=== PATIENT | female | born 1995 ===

== ENCOUNTER 2018-07-11 14:18 | Inpatient (IN) ==
[2018-07-11 11:51] LABS: Amphetamine Screen,Urine Negative ng/mL (Cutoff=1000); Barbiturate Screen,Urine Negative ng/mL (Cutoff=200); Benzodiazepines Screen,Urine Negative ng/mL (Cutoff=200); Cannabinoid Screen,Urine Negative ng/mL (Cutoff = 50); Cocaine Screen,Urine Negative ng/mL (Cutoff= 300); Creatinine,Urine 52 mg/dL; Opiate Screen,Urine Negative ng/mL (Cutoff=300); Phencyclidine Screen,Urine Negative ng/mL (Cutoff=25)
[2018-07-11 11:59] LABS: Basophils % 0.3 %; Eosinophils # 0.1 K/mcL (0.0-0.6); Hematocrit 38.4 % (35.3-44.9); Hemoglobin 13.6 g/dL (11.5-15.4); Immature Granulocytes % 0.3 % (0-4); Lymphocytes # 1.8 K/mcL (0.6-4.6); Mean Corpuscular HGB Conc 35.4 g/dL (31.6-35.5); Mean Corpuscular Hemoglobin 29.9 pg (28.0-33.3); Mean Corpuscular Volume 84.4 fL (83.0-100.0); Mean Platelet Volume 10.6 fL (9.4-12.4); Monocytes # 0.5 K/mcL (0.0-1.3); Neutrophils # 3.6 K/mcL (1.6-8.9); Nucleated Red Blood Cells 0.3 /100 WBC (0); Platelet Count 293 K/mcL (140-400); Red Blood Count 4.55 M/mcL (3.82-4.97); Red Cell Distribution Width 13.7 % (11.5-14.5); Segmented Neutrophils % 60.4 %
[2018-07-11 12:06] LABS: Alanine Aminotransferase 25 Units/L (7-52); Aspartate Amino Transferase 22 Units/L (13-39); BUN/Creatinine Ratio 14 (6-26); Blood Urea Nitrogen 11 mg/dL (6-20); Lactate Dehydrogenase 182 Units/L (140-271); Uric Acid 7.3 mg/dL (2.3-7.6); eGFR For Non-African Americans > 60 (> 60)
--- NOTE | 2018-07-11 13:08 | OB/GYN History & Physical ---
Date of Encounter: 07/11/18 Time of Encounter: 13:04 Assessment and Plan (1) First in adolescent 16 years of age or older in third trimester Current visit: Yes Status: Acute (2) 36 weeks gestation of Current visit: Yes Status: Acute (3) Mild preeclampsia Current visit: Yes Status: Acute Case was discussed with maternal medicine at [facility] who recommended 24-hour urine serial blood pressures and if stable discharge home but if she spikes high blood pressures again in the severe range to bring back to labor and delivery placed on magnesium sulfate and start an induction. Qualifiers: Trimester: third trimester Qualified Code(s): O14.03 - Mild to moderate pre-eclampsia, third trimester History of Present Illness HPI: Ms. Iglesias is a 22 year old female 1 para 0 at 36-0/7 weeks who was sent from the office due to elevated blood pressures. Patient had blood pressures of 168/120 with a repeat of 160/120 patient was recently seen at [facility] admitted because of mild preeclampsia lab work at that time was all normal blood pressure was stable she was discharged home. Patient is scheduled for induction at 37 weeks. 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 She is not cured. Patient states she has had no complications with sickle cell since that transplant patient is denying any headaches, blurred vision, scotomata, is asymptomatic and always. Her blood pressure initially on labor and delivery was 142/92 however her repeats were stable 120s over 70s with 117/70 is the lowest. Patient states that she is scheduled for an echocardiogram later today due to some history of an enlarged heart but they did one at [facility]. We did call maternal- medicine discuss the case with them because all of her labs are normal blood pressure stable and she is asymptomatic. Recommended keeping patient for 24- hour urine if she was to spike severe blood pressures again go ahead and mag and start the induction. Blood pressure stable 25 urine is normal she should be discharged home repeat NST and labs later in the week and induce at 37 weeks. Patient's echocardiogram at [facility] was normal she had mild pericardial effusions but ejection fraction was 55-60% there was no concerns. He also GBS while she was there that was negative. The only abnormal lab she had today with her to continue ratio was 0.6 but LFTs platelets and hemoglobin overall stable. She is not complaining of any contractions still having good movement. We will start the 25 urine watch her closely over on the floor. Past Med Surg Social Fam HX - Past Medical History Source: patient, old records reviewed Additional medical history: sickle cell anemia. bone marrow at age 11. pt was at [facility] for high bp 2 weeks ago Psychiatric history: no psych history - Past Surgical History Surgical History: appendectomy, cholecystectomy, splenectomy Additional surgical history: left side hip and pelvic bone surgery - Social History Smoking Status: Never smoker Alcohol use: none Drug use: none Occupational status: unemployed Current living situation: Home - Independent Activity Level: Independent ambulation Recent Out of Country Travel Within the Last 8 Weeks: No Exposure or Possible Exposure to Illness During Travel: No - Family History Mother Living Status: Still Living Hx Family Cardiac Disorders: No Hx Family Respiratory Disorders: No Hx Family Cancer: No Hx Family GI Disorders: No Hx Family Genitourinary Disorders: No Hx Family Endocrine Disorder: No Hx Family Musculoskeletal Disorders: No Hx Family Neuromuscular Disorders: No Hx Family Neurologic Disorders: No Hx Family HEENT Disorders: No Hx Family Autoimmune Disorders: No Hx Family Reproductive Disorders: No Hx Family Psychosocial Disorders: No Hx Family Medical Disorders: No - Additional Family History Additional family history: Family history noncontributory at this time Obstetrical History - Pregnancies : 1 Para: 0 Medications and Allergies Pnv95/Ferrous Fumarate/FA [ Vitamin Tablet] 1 tab PO DAILY 07/11/18 [History] Allergy/AdvReac Type Severity Reaction Status Date / Time No Known Allergies Allergy Verified 07/11/18 11:03 Review of System OB All systems PM: reviewed and no additional remarkable complaints except as stated Exam - Constitutional Constitutional: well developed, well nourished, no acute distress, average body habitus - HEENT HEENT: EOMI, PERRL, Mucus Membranes Moist - Neck Neck exam: full ROM - Lungs Respiratory exam: CTAB - Cardiovascular Cardiovascular exam: RRR - Abdomen Abdomen: Present: bowel sounds normal, gravid (Heart tones 140s reactive occasional contractions) Results Result Diagrams: 07/11/18 11:15 07/11/18 11:15 Abnormal lab results Nucleated RBCs/100 WBC 0.3 /100 WBC (0) H 07/11/18 11:15 Protein/Creatinin Ratio 0.60 mg/mg (0.00-0.20) H 07/11/18 11:15 Urine Total Protein 31 mg/dL (1-14) H 07/11/18 11:15 All other labs normal. - VTE Reasons for not Prescribing Prophylaxis: Treatment not Indicated - Low risk for VTE
[2018-07-11] MEDS ORDERED: Acetaminophen 325 MG TABLET PO PRN (14:31)
[2018-07-11] MEDS ORDERED: Calcium Gluconate 1,000 MG/10 ML VIAL IVPB PRN (23:06)
[2018-07-11] MEDS ORDERED: miSOPROStol 25 MCG TABLET PO ONE (23:30)
[2018-07-11] MEDS ORDERED: Naloxone 0.4 MG/ML INJ IVP PRN (23:32)
[2018-07-11] MEDS ORDERED: *HR* Nalbuphine 10 MG/ML AMPUL IVP PRN (23:32)
[2018-07-11] MEDS ORDERED: Metoclopramide 10 MG/2 ML VIAL IVP PRN (23:32)
[2018-07-11] MEDS ORDERED: Famotidine 20 MG/2 ML VIAL IVP PRN (23:32)
[2018-07-12] MEDS: Ondansetron 4 MG/2 ML VIAL IVP PRN ×2 (00:36→17:36)
[2018-07-12] MEDS: Magnesium Sulfate 20 gm/500mL 20 GM/500 ML IV.SOLN IVC SCH ×3 (00:53→22:09)
--- NOTE | 2018-07-12 03:12 | OB Labor Progress Note ---
Date of Encounter: 07/12/18 Time of Encounter: 00:20 Labor Progress Note - Subjective Subjective: Patient resting in bed without complaint at this time. She is very nervous. - Vital Signs Vital Signs: Elevated BP, afebrile - Cervix Cervix: FT/thick/high - Heart Tones Heart Tones: FHR 130 bpm, moderate variability, +15x15 accels, no decels. - [place]: Rare contractions - Interventions Interventions: SVE PO Cytotec ordered - Plan Physician notified: Yes Physician notified details: Dr. Brice aware of patient's BP's and he ordered the induction. Orders were given for 4 gram Mag Sulfate bolus, then 2 gm/hr. Plan: Start Mag Sulfate per protocol with BP monitoring per protocol. Begin induction with 50 mcg po Cytotec Strict I&O
[2018-07-12 06:24] LABS: Basophils % 0.1 %; Eosinophils % 0.4 %; Hematocrit 41.2 % (35.3-44.9); Hemoglobin 14.5 g/dL (11.5-15.4); Immature Granulocytes % 0.6 % (0-4); Lymphocytes # 2.2 K/mcL (0.6-4.6); Lymphocytes % 24.6 %; Mean Corpuscular HGB Conc 35.2 g/dL (31.6-35.5); Mean Corpuscular Hemoglobin 29.7 pg (28.0-33.3); Mean Corpuscular Volume 84.3 fL (83.0-100.0); Mean Platelet Volume 10.2 fL (9.4-12.4); Monocytes # 0.9 K/mcL (0.0-1.3); Monocytes % 9.5 %; Neutrophils # 5.8 K/mcL (1.6-8.9); Nucleated Red Blood Cells 0.3 /100 WBC (0); Platelet Count 284 K/mcL (140-400); Red Blood Count 4.89 M/mcL (3.82-4.97); Red Cell Distribution Width 13.4 % (11.5-14.5); Segmented Neutrophils % 64.8 %
[2018-07-12 06:48] LABS: Uric Acid 7.8 mg/dL (2.3-7.6)
[2018-07-12] MEDS ORDERED: Epidural Premix (fent/bupiv) 110 ML EP SCH (08:00)
[2018-07-12] MEDS ORDERED: Prenatal Vit/FA 1 EACH TABLET PO SCH (09:00)
--- NOTE | 2018-07-12 09:07 | OB Labor Progress Note ---
Date of Encounter: 07/12/18 Time of Encounter: 09:05 Labor Progress Note - Subjective Subjective: Pt resting, no acute c/o. Minimal cramps - Vital Signs Vital Signs: BP142/94 - Cervix Cervix: Ft/70/-1, very difficult to examine b/c of pain - [place]: Irritability - Interventions Interventions: Will start pit - Plan Plan: Will begin Pit
[2018-07-12] MEDS ORDERED: Oxytocin 20 units/ LR 1000 mL 20 UNIT/1,000 ML BAG IVC SCH (09:15)
[2018-07-12] MEDS ORDERED: Oxytocin 20 units/ LR 1000 mL 20 UNIT/1,000 ML BAG IVC ONE (09:21)
--- NOTE | 2018-07-12 09:51 | Anesthesia Evaluation PreOp ---
Addendum entered and electronically signed by Keny Wills CRNA 07/14/18 00:20: Delivery Date: 07/14/18 Delivery Time: 23:25 Original Note: Date of Encounter: 07/12/18 Time of Encounter: 09:49 - Past History Planned Operation: BISMARK/Primary C/S Cardiac History: Other (Echo done at [facility] during this . Enlarged heart with minor fluid, EF 55-60%. Pt denies chest pains and arrhythmias.) Pulmonary History: Denies Any Significant HX LANDSCAPE ARCHITECT AND PLANNER History: Denies Any Significant HX Other Medical History: Other (Sickle Cell Dx) Anesthesia History: No Prior Anesthetic Complications, Past Anesthesia (Multiple surgeries, no complications.) Alcohol Use: none Drug use: none Medications and Allergies Pnv95/Ferrous Fumarate/FA [ Vitamin Tablet] 1 tab PO DAILY 07/11/18 [History] Allergy/AdvReac Type Severity Reaction Status Date / Time No Known Allergies Allergy Verified 07/11/18 11:03 - Meds/Allergy Pre-op Review Medications Reviewed: Yes Allergies Reviewed: Yes Beta Blockers on Current Med List: No Anesthesia Results - Labs 07/12/18 06:14 07/11/18 11:15 Anesthesia Exam O2 Sat Height 1.63 m Height 1.63 m Weight 77.065 kg Weight 75 kg Weight 74.7 kg O2 Sat by Pulse Oximetry 99 O2 Sat by Pulse Oximetry 99 O2 Sat by Pulse Oximetry 97 Vital Signs Temp Pulse Resp BP Pulse Ox 98.6 F 74 12 144/100 97 07/11/18 14:05 07/11/18 14:05 07/11/18 14:05 07/11/18 14:05 07/11/18 14:05 NPO (# of Hours): 4 Pain Scale: 1 Pain Scale Used: Numeric (1 - 10) - HEENT Pupil (Motor): Pupils equal Mallampati: II Teeth: Normal Oral Opening: Greater than 3 - LANDSCAPE ARCHITECT AND PLANNER LOC: Oriented LANDSCAPE ARCHITECT AND PLANNER Motor: Normal RUE, Normal LUE, Normal RLE, Normal LLE, Normal Face LANDSCAPE ARCHITECT AND PLANNER Sensory: Normal: RUE, LUE, RLE, LLE, Face - Cardiac Rhythm: Regular Murmur: None JVD: No Carotid Bruit: No - Pulmonary Breath Sounds: bilateral Clear Respiratory Effort: Symmetrical Anesthesia Assess/Plan ASA Score: 2 Level of consciousness: Cooperative, Oriented Anesthetic Plan: General, Epidural Autologous Blood: Yes Monitoring Plan: Standard Monitors
[2018-07-12] MEDS ORDERED: Acetaminophen 325 MG TABLET PO PRN (12:42)
[2018-07-12] MEDS ORDERED: *HR* Meperidine 25 MG/ML SYRINGE IVP PRN (20:42)
--- NOTE | 2018-07-12 20:45 | OB Labor Progress Note ---
Date of Encounter: 07/12/18 Time of Encounter: 20:44 Labor Progress Note - Subjective Subjective: Pt c/o headache, minimal cramps. - Vital Signs Vital Signs: bp 138/88 - Cervix Cervix: 1 60 -2 - Heart Tones Heart Tones: RNST - [place]: Irregular uc's with pit at 20 mu/min - Interventions Interventions: Grimes cath placed into cervix without difficulty and ballon filled with 40 ccsterile water.
[2018-07-13] MEDS: miSOPROStol 25 MCG TABLET PO PRN ×2 (00:42→05:02)
[2018-07-13] MEDS: Ondansetron 4 MG/2 ML VIAL IVP PRN ×3 (00:47→16:27)
[2018-07-13] MEDS: Ringers Solution, Lactated 1,000 ML IVC SCH ×2 (07:37→16:28)
[2018-07-13] MEDS: Magnesium Sulfate 20 gm/500mL 20 GM/500 ML IV.SOLN IVC SCH ×2 (07:38→17:38)
[2018-07-13] MEDS ORDERED: *HR* FentaNYL (PF) 100 MCG/2 ML VIAL EP ONE (08:57)
[2018-07-13] MEDS ORDERED: *HR* Ropivacaine/PF 0.2% 20 ML VIAL EP ONE (08:57)
[2018-07-13] MEDS ORDERED: *HR* FentaNYL (PF) 100 MCG/2 ML VIAL ONE (08:59)
[2018-07-13] MEDS ORDERED: Lidocaine -MPF 2% 5 ML VIAL ONE (08:59)
[2018-07-13] MEDS ORDERED: *HR* Ropivacaine/PF 0.2% 20 ML VIAL ONE (09:00)
[2018-07-13] MEDS ORDERED: EPHEDrine 50 MG/ML VIAL ONE ×2 (09:29→10:42)
--- NOTE | 2018-07-13 09:36 | Anesthesia Procedures ---
Date of Encounter: 07/13/18 Time of Encounter: 09:34 Procedures: Anesthesia - Epidural/Spinal Patient ID/Chart reviewed: Yes Patient examined: Yes OB Eval: Gestational age: 36 OB Eval: : 1 OB Eval: Hx Para: 0 OB Eval: Dilated at (cm): 2 OB Eval: Contractions: Non-stressed pattern Consent Obtained: Yes Supplemental Oxygen: None/Room Air Site Prep: Aseptic Technique, Sterile prep and drape Patient position: upright Local Anesthetic: Lidocaine 1% Amount of Local Anesthetic used: 3 Touhy Needle Gauge: 18 Touhy Needle Depth (cm): 8 Catheter Depth at Skin (cm): 20 Test Dose (1.5% Lido + Epi): Volume given (mls): 3 Test Dose Result: Negative Loading Dose: Fentanyl (mcg): 100 Loading Dose: Other: rop 0.2% 10cc Loading Dose Administered: Thru Catheter Infusion Med: 0.125% Bupivacaine w/ 2 mcg/ml Fentanyl Infusion Rate (mls/hr): [address]: Tegaderm Interspace Used: L2-L3 Loss of Resistance (SOL): Yes Blood: No CSF: No Paresthesia: No Procedure: aseptic, jcarlos well, VSS, effective Vitals + FHT's: see notes
[2018-07-13] MEDS ORDERED: miSOPROStol 100 MCG TABLET PO ONE (11:09)
--- NOTE | 2018-07-13 13:22 | OB Labor Progress Note ---
Date of Encounter: 07/13/18 Time of Encounter: 13:20 Labor Progress Note - Subjective Subjective: Pt comfortable with epidural. - Cervix Cervix: 6/80/-1 - Heart Tones Heart Tones: Baseline 120 Moderate variability Accelerations present 15x15 No decelerations FHR Category I - [place]: UTD - Interventions Interventions: SVE AROM-large amount of clear fluid IUPC - Plan Physician notified: Yes Physician notified details: Dr. Monreal updated Plan: Continue IOL management Frequent position changes Anticipate Dr. Monreal updated
[2018-07-13] MEDS ORDERED: Lidocaine/EPI 1:200k 1% PF 10 ML VIAL ONE (18:30)
--- NOTE | 2018-07-14 00:12 | OB/GYN Procedure Note ---
Addendum entered and electronically signed by Yue Monreal 07/20/18 12:44: Due to clerical error, the incorrect delivery date was generated in the previous documentation for this patient. The patient delivered her viable female on July 13, 2018 @ 2325. Addendum entered and electronically signed by Becca Abreu MD 07/14/18 14:13: I was present, gloved and gowned and participated in this delivery and agree with documentation below. Becca Abreu M.D. Addendum entered and electronically signed by Yue Monreal 07/14/18 02:28: Cord blood obtained form placenta for routine testing. The placenta was expressed, intact, with a 3 vessel cord & sent to Pathology for routine testing. The uterus was atonic after delivery of placenta, despite oxytocin IV per protocol. 200mcg of PO Cytotec was given & good uterine tone obtained. Drs. Abreu & Rah present for delivery. Original Note: Delivery - Delivery Date: 07/14/18 Provider: Yue Monreal (Human Services Assistant: Dr. Becca Abreu) Intrapartum events: prolonged 2nd stage>2.5hr Delivery induction: oxytocin, misoprostol Delivery augmentation: rupture of membranes, pitocin Delivery monitor: external FHT, internal uterine Anesthesia: epidural Quantitated Blood Loss: 350 - (s) Infant A Infant Delivery Date: 07/14/18 Infant Delivery Time: 23:25 Presentation: vertex Position: VINNIE Route of delivery: vacuum extraction Gender: Female Viability: Viable Pounds: 5 Ounces: 5 Weight Gram: 2.42 kg at 1 minute: 6 at 5 mins: 8 Shoulder Dystocia: not encountered Specimens collected: cord blood Placenta: spontaneous Cord: nuchal cord, 3 umbilical vessels, nuchal reduced - Repair Episiotomy: none Laceration Description: Periurethral, Perineal - 2nd Degree - Complications Delivery complications: uterine atony Delivery comments: Pt progressed to complete w/ epidural anesthesia. With the assistance of vincent adams, she pushed to deliver a live female infant with APGARS of 6/8, weighing 5#5oz @ 2325. The head delivered in the VINNIE position. A nuchal cord was observed around the neck & reduced at the perineum. The left shoulder delivered with ease, followed by the rest of the body. The was safely transferred to the maternal abdomen for further care by the RNs. The cervix, vagina, & perineum were inspected for lacerations. A second degree perineal laceration was repaired w/ 3-0 monocryl. A figure of 8 stitch was placed at the apex to assist w/ hemostasis. Good hemostasis obtained. - Disposition Mom disposition: stable in LDR [place] disposition: stable in LDR
[2018-07-14] MEDS ORDERED: *HR* Labetalol 20 MG/4 ML SYRINGE IVP ONE (00:48)
[2018-07-14] MEDS ORDERED: CeFAZolin Premix DUPLEX 2,000 MG/50 ML BAG IVPB SCH (01:00)
[2018-07-14] MEDS ORDERED: ceFAZolin 2,000 MG in Water for inj. (sterile) 20 ML IVP SCH (01:00)
[2018-07-14] MEDS ORDERED: *HR* HYDROcodone/Acet 5/325 mg TABLET PO PRN (01:18)
[2018-07-14] MEDS ORDERED: Measles/Mumps/Rubella Vacc 0.5 ML VIAL SQ PRN (01:18)
[2018-07-14] MEDS ORDERED: Oxytocin 20 units/ LR 1000 mL 20 UNIT/1,000 ML BAG IVC SCH (01:18)
[2018-07-14] MEDS ORDERED: Gentamicin 60 MG in 0.9 % Sodium Chloride 100 ML IVPB ONE (01:18)
[2018-07-14] MEDS ORDERED: Rho Immune Globulin 1,500 UNIT SYRINGE IM PRN (01:18)
[2018-07-14] MEDS ORDERED: Sennosides 8.6 MG TABLET PO PRN (01:18)
[2018-07-14] MEDS ORDERED: Calcium Gluconate 1,000 MG/10 ML VIAL IVPB PRN (01:43)
[2018-07-14] MEDS ORDERED: Gentamicin 320 MG in 0.9 % Sodium Chloride 100 ML IVPB SCH (02:00)
[2018-07-14] MEDS: Magnesium Sulfate 20 gm/500mL 20 GM/500 ML IV.SOLN IVC SCH ×2 (04:17→14:11)
[2018-07-14 08:11] LABS: Basophils % 0.1 %; Hematocrit 34.1 % (35.3-44.9); Immature Granulocytes % 0.8 % (0-4); Lymphocytes # 1.7 K/mcL (0.6-4.6); Lymphocytes % 9.6 %; Mean Corpuscular HGB Conc 35.2 g/dL (31.6-35.5); Mean Corpuscular Hemoglobin 29.3 pg (28.0-33.3); Mean Corpuscular Volume 83.4 fL (83.0-100.0); Mean Platelet Volume 10.5 fL (9.4-12.4); Monocytes # 1.5 K/mcL (0.0-1.3); Monocytes % 8.5 %; Neutrophils # 14.2 K/mcL (1.6-8.9); Nucleated Red Blood Cells 0.1 /100 WBC (0); Platelet Count 230 K/mcL (140-400); Red Blood Count 4.09 M/mcL (3.82-4.97); Red Cell Distribution Width 13.6 % (11.5-14.5)
[2018-07-14] MEDS: Prenatal Vit/FA 1 EACH TABLET PO SCH (09:32)
[2018-07-14] MEDS: Ibuprofen 600 MG TABLET PO SCH ×2 (09:32→15:33)
[2018-07-14] MEDS: CeFAZolin Premix DUPLEX 2,000 MG/50 ML BAG IVPB SCH ×2 (09:33→18:13)
[2018-07-14] MEDS ORDERED: Ondansetron 4 MG/2 ML VIAL IM ONE (10:35)
--- NOTE | 2018-07-14 11:08 | OB/GYN Progress Note ---
Date of Encounter: 07/14/18 Time of Encounter: 11:04 - Assessment and Plan (1) 36 weeks gestation of Current Visit: Yes Status: Acute (2) Sickle cell disease Current Visit: Yes Status: Acute Continue current management. We will check PIH labs today. Continue pain management. Continue antibiotics for 24 hours. We will recheck mag level today. Qualifiers: Qualified Code(s): D57.1 - Sickle-cell disease without crisis (3) Preeclampsia Current Visit: Yes Status: Acute Qualifiers: Qualified Code(s): O14.93 - Unspecified pre-eclampsia, third trimester Subjective - Subjective Principal diagnosis: Vaginal delivery Interval history: 22-year-old -Cypriot female with known sickle cell disease status post vaginal delivery at midnight. Patient had a fever at time of delivery last night of . Antibiotics were started at that time. complicated by chronic hypertension and preeclampsia. Magnesium sulfate was started last p.m. Blood pressures been controlled currently on 200 mg of labetalol 3 times a day. Labs pending for today. Patient with known cardiomyopathy, bone marrow transplant, splenectomy and hip replacement This morning patient doing well. Having some nausea. Zofran has been ordered. Pain well controlled. Patient feeling well other than this. We will repeat magnesium level today. PIH labs pending. Patient reports: appetite normal, voiding normally, pain well controlled [place]: doing well Objective - Latest Vital Signs Latest vital signs: Vital Signs Temp Pulse Resp BP Pulse Ox 07/14/18 10:30 76 16 125/82 07/14/18 08:30 80 16 121/82 07/14/18 07:50 99.4 F 85 14 128/83 95 07/14/18 07:35 85 14 128/83 07/14/18 06:15 82 16 123/81 07/14/18 05:03 80 16 125/79 07/14/18 04:12 99.1 F 88 15 124/83 95 07/14/18 03:30 98.6 F 90 16 123/79 98 07/14/18 02:15 99.5 F 90 16 132/82 96 Intake and Output 07/13/18 07/14/18 07/14/18 23:59 07:59 15:59 Intake Total 500 / 500 0 / 0 Output Total 600 / 600 1820 / 1820 2200 / 2200 Balance -100 / -100 -1820 / -1820 -0 / -2200 Intake: IV Fluids 500 / 500 Magnesium Sulfate Premix 20 gm/ 500 / 500 500mL 20 gm In 500 ml @ 2 GM/HR 50 mls/hr IVC .Q10H [facility] Rx#: [id number] Oral 0 / 0 Output: Urine 720 / 720 800 / 800 Catheter 600 / 600 1100 / 1100 1400 / 1400 Other: Stool Characteristics Normal for Patient Weight 73 kg Blood Glucose* 113 Patient Weight 07/14/18 23:59 Weight 73 kg - Exam Lungs: bilateral: normal Extremities: Present: normal Abdomen: Present: normal appearance, soft Uterus: Present: normal, firm Uterus Position: 3 Fingers Below Umbilicus - Labs Labs: Laboratory Results - last 24 hr 07/13/18 07/14/18 07/14/18 23:40 04:13 07:53 WBC 17.5 H D RBC 4.09 Hgb 12.0 D Hct 34.1 L MCV 83.4 MCH 29.3 MCHC 35.2 RDW 13.6 Plt Count 230 MPV 10.5 Immature Gran % 0.8 Seg Neutrophils % 81.0 Lymphocytes % 9.6 Monocytes % 8.5 Eosinophils % 0.0 Basophils % 0.1 Neutrophils # 14.2 H Lymphocytes # 1.7 Monocytes # 1.5 H Eosinophils # 0.0 Basophils # 0.0 Nucleated RBCs/100 WBC 0.1 H POC Glucose 113 H Magnesium > 8.0 H
[2018-07-14 16:24] LABS: Magnesium > 8.0 mg/dL (1.6-2.6)
[2018-07-14 17:18] LABS: Protein/Creatinine Ratio,Urine 0.19 mg/mg (0.00-0.20)
[2018-07-14 17:29] LABS: Alanine Aminotransferase 47 Units/L (7-52); Aspartate Amino Transferase 58 Units/L (13-39); BUN/Creatinine Ratio 11 (6-26); Blood Urea Nitrogen 12 mg/dL (6-20); Lactate Dehydrogenase 389 Units/L (140-271); Uric Acid 10.1 mg/dL (2.3-7.6); eGFR For Non-African Americans > 60 (> 60)
--- NOTE | 2018-07-14 18:49 | Event Note ---
Date of Encounter: 07/14/18 Time of Encounter: 18:47 Follow-up labs have been ordered and this patient. I repeated a magnesium level this patient. I was called back with a magnesium level greater than 8. I immediately stopped her magnesium. Patient was very sleepy. She did not eat. She does not feel well. I went back this afternoon to check on patient. Patient alert and oriented. Feeling very well. She has had dinner this evening. Feeling much better. Patient's lab work is still elevated. Her creatinine has increased 1.09. Her liver enzymes of all elevated. We will have repeat labs in the morning should not. At this point blood pressures are stable magnesium will be discontinued completely and not restarted because of kidney function. I feel patient is stable at this point. We will continue to monitor her blood pressures.
[2018-07-15] MEDS: CeFAZolin Premix DUPLEX 2,000 MG/50 ML BAG IVPB SCH (00:59)
[2018-07-15 07:51] LABS: Alanine Aminotransferase 40 Units/L (7-52); Aspartate Amino Transferase 53 Units/L (13-39); BUN/Creatinine Ratio 14 (6-26); Blood Urea Nitrogen 14 mg/dL (6-20); Lactate Dehydrogenase 279 Units/L (140-271); Uric Acid 9.1 mg/dL (2.3-7.6); eGFR For Non-African Americans > 60 (> 60)
[2018-07-15] MEDS: Prenatal Vit/FA 1 EACH TABLET PO SCH (07:55)
--- NOTE | 2018-07-15 10:53 | OB/GYN Progress Note ---
Date of Encounter: 07/15/18 Time of Encounter: 10:51 - Assessment and Plan (1) Vaginal delivery Current Visit: Yes Status: Acute Continue routine care Meeting milestones appropriately Anticipate discharge home tomorrow POC per consult with Dr Brice (2) Preeclampsia Current Visit: Yes Status: Acute Repeat labs in AM Monitor BP today Qualifiers: Trimester: third trimester Qualified Code(s): O14.93 - Unspecified pre- eclampsia, third trimester Subjective - Subjective Principal diagnosis: S/P Vaginal delivery and Pre-E Interval history: S/P vaginal delivery day 2 Labs decreased from yesterday; Elevated BP prior to labetalol this AM. Will monitor BP today and Labs in Am Pain well controlled Lochia light and without clots VSS Tolerating regular diet; passing flatus Voiding without difficulty Bottle feeding Anticipate discharge home tomorrow POC per consult with Dr Brice Patient reports: appetite normal, voiding normally, pain well controlled, ambulating normally : doing well, bottle feeding Objective - Latest Vital Signs Latest vital signs: Vital Signs Temp Pulse Resp BP Pulse Ox 07/15/18 09:54 86 16 121/79 07/15/18 08:05 98.5 F 69 14 152/101 95 07/15/18 03:53 97.6 F 95 15 121/85 96 07/15/18 00:31 98.0 F 70 14 110/73 96 07/14/18 22:10 98.3 F 71 15 115/72 98 07/14/18 20:27 98.4 F 68 15 120/78 96 07/14/18 18:35 98.2 F 69 16 105/62 95 07/14/18 17:25 67 16 132/84 07/14/18 15:31 69 16 132/74 07/14/18 14:20 69 16 132/74 07/14/18 12:35 67 16 96/59 07/14/18 11:34 67 16 116/72 Intake and Output 07/14/18 07/15/18 07/15/18 23:59 07:59 15:59 Intake Total 50 / 50 850 / 850 Output Total 945 / 945 2450 / 2450 Balance -895 / -895 -1600 / -1600 Intake: IV Fluids 50 / 50 50 / 50 Ancef Premix DUPLEX 2,000 mg In 50 / 50 50 / 50 50 ml @ 100 mls/hr IVPB Q8H [facility] Rx#:[id number] Oral 800 / 800 Output: Urine 445 / 445 1000 / 1000 Catheter 500 / 500 1450 / 1450 Other: Stool Characteristics Normal for Patient Weight 69.4 kg Patient Weight 07/15/18 23:59 Weight 69.4 kg - Exam Lungs: bilateral: normal Chest: Normal S1, Normal S2 Extremities: Present: normal Abdomen: Present: normal appearance, soft. Absent: gravid Uterus: Present: normal, firm Uterus Position: At Umbilicus, Midline - Labs Labs: Laboratory Results - last 24 hr 07/14/18 07/14/18 07/15/18 15:49 16:50 06:54 BUN 12 14 Creatinine 1.09 0.99 Est GFR ( Amer) > 60 > 60 Est GFR (Non-Af Amer) > 60 > 60 BUN/Creatinine Ratio 11 14 Uric Acid 10.1 H 9.1 H Magnesium > 8.0 H AST 58 H 53 H ALT 47 40 Lactate Dehydrogenase 389 H 279 H Urine Creatinine 21 Protein/Creatinin Ratio 0.19 Urine Total Protein 4
[2018-07-15 11:08] LABS: Basophils % 0.1 %; Eosinophils # 0.1 K/mcL (0.0-0.6); Eosinophils % 0.3 %; Hematocrit 33.1 % (35.3-44.9); Hemoglobin 11.4 g/dL (11.5-15.4); Immature Granulocytes % 0.6 % (0-4); Lymphocytes # 2.4 K/mcL (0.6-4.6); Lymphocytes % 15.6 %; Mean Corpuscular HGB Conc 34.4 g/dL (31.6-35.5); Mean Corpuscular Hemoglobin 29.5 pg (28.0-33.3); Mean Corpuscular Volume 85.8 fL (83.0-100.0); Mean Platelet Volume 10.3 fL (9.4-12.4); Monocytes # 1.5 K/mcL (0.0-1.3); Monocytes % 9.6 %; Neutrophils # 11.5 K/mcL (1.6-8.9); Platelet Count 239 K/mcL (140-400); Red Blood Count 3.86 M/mcL (3.82-4.97); Red Cell Distribution Width 13.9 % (11.5-14.5); Segmented Neutrophils % 73.8 %
[2018-07-15 11:27] LABS: Alanine Aminotransferase 40 Units/L (7-52); Aspartate Amino Transferase 51 Units/L (13-39); BUN/Creatinine Ratio 14 (6-26); Blood Urea Nitrogen 13 mg/dL (6-20); Lactate Dehydrogenase 263 Units/L (140-271); Uric Acid 8.5 mg/dL (2.3-7.6); eGFR For Non-African Americans > 60 (> 60)
[2018-07-16] MEDS: Prenatal Vit/FA 1 EACH TABLET PO SCH (08:16)
[2018-07-16 10:14] LABS: Basophils % 0.3 %; Eosinophils # 0.4 K/mcL (0.0-0.6); Eosinophils % 2.7 %; Hematocrit 37.5 % (35.3-44.9); Hemoglobin 12.5 g/dL (11.5-15.4); Immature Granulocytes % 0.9 % (0-4); Lymphocytes # 3.1 K/mcL (0.6-4.6); Lymphocytes % 22.9 %; Mean Corpuscular HGB Conc 33.3 g/dL (31.6-35.5); Monocytes # 1.3 K/mcL (0.0-1.3); Monocytes % 9.3 %; Neutrophils # 8.6 K/mcL (1.6-8.9); Nucleated Red Blood Cells 0.2 /100 WBC (0); Platelet Count 327 K/mcL (140-400); Red Blood Count 4.31 M/mcL (3.82-4.97); Red Cell Distribution Width 13.6 % (11.5-14.5); Segmented Neutrophils % 63.9 %
[2018-07-16 10:30] LABS: Alanine Aminotransferase 46 Units/L (7-52); Aspartate Amino Transferase 46 Units/L (13-39); BUN/Creatinine Ratio 12 (6-26); Blood Urea Nitrogen 10 mg/dL (6-20); Lactate Dehydrogenase 238 Units/L (140-271); Uric Acid 7.2 mg/dL (2.3-7.6); eGFR For Non-African Americans > 60 (> 60)
[2018-07-16 11:20] VITALS: BP 111/75
--- NOTE | 2018-07-16 14:15 | Discharge Summary ---
Date of Encounter: 07/16/18 Time of Encounter: 14:14 - Discharge Diagnosis (1) Preeclampsia Priority: Secondary Status: Acute Comments: PIH labs in normal range today, blood pressure is well controlled with labetalol 200 mg twice a day Discharge home with follow-up next week with OB care provider Qualifiers: Trimester: third trimester Qualified Code(s): O14.93 - Unspecified pre- eclampsia, third trimester (2) Vaginal delivery Priority: Primary Status: Acute Comments: Patient meeting day 3 milestones. Pain well-controlled with prescribed medications. Voiding without difficulty. Positive bowel movement. Anticipate discharge today - Discharge Medications Prescriptions: Ibuprofen [Motrin] 600 mg PO Q6HR #60 tablet Labetalol [Trandate] 200 mg PO BID #60 tablet Home Medications: Pnv95/Ferrous Fumarate/FA [ Vitamin Tablet] 1 tab PO DAILY 07/11/18 [History] Docusate [Colace] 100 mg PO BID capsule 07/16/18 [Rx] Ibuprofen [Motrin] 600 mg PO Q6HR #60 tablet 07/16/18 [Rx] Labetalol [Trandate] 200 mg PO BID #60 tablet 07/16/18 [Rx] Allergies/Adverse Reactions: Allergy/AdvReac Type Severity Reaction Status Date / Time No Known Allergies Allergy Verified 07/11/18 11:03 Data Procedures and tests throughout hospitalization: Laboratory Tests 07/11/18 07/11/18 07/11/18 11:15 11:15 11:15 WBC 6.0 RBC 4.55 Hgb 13.6 Hct 38.4 MCV 84.4 MCH 29.9 MCHC 35.4 RDW 13.7 Plt Count 293 MPV 10.6 Immature Gran % 0.3 Seg Neutrophils % 60.4 Lymphocytes % 30.0 Monocytes % 8.0 Eosinophils % 1.0 Basophils % 0.3 Neutrophils # 3.6 Lymphocytes # 1.8 Monocytes # 0.5 Eosinophils # 0.1 Basophils # 0.0 Nucleated RBCs/100 WBC 0.3 H BUN 11 Creatinine 0.81 Est GFR ( Amer) > 60 Est GFR (Non-Af Amer) > 60 BUN/Creatinine Ratio 14 POC Glucose Uric Acid 7.3 Magnesium AST 22 ALT 25 Lactate Dehydrogenase 182 Urine Creatinine 52 Protein/Creatinin Ratio 0.60 H Urine Total Protein 31 H Urine Opiates Screen Negative Ur Barbiturates Screen Negative Ur Phencyclidine Scrn Negative Ur Amphetamines Screen Negative U Benzodiazepines Scrn Negative Urine Cocaine Screen Negative U Marijuana (THC) Screen Negative Ur Drug Screen Inter See Below 07/12/18 07/12/18 07/13/18 06:14 06:14 23:40 WBC 9.0 RBC 4.89 Hgb 14.5 Hct 41.2 MCV 84.3 MCH 29.7 MCHC 35.2 RDW 13.4 Plt Count 284 MPV 10.2 Immature Gran % 0.6 Seg Neutrophils % 64.8 Lymphocytes % 24.6 Monocytes % 9.5 Eosinophils % 0.4 Basophils % 0.1 Neutrophils # 5.8 Lymphocytes # 2.2 Monocytes # 0.9 Eosinophils # 0.0 Basophils # 0.0 Nucleated RBCs/100 WBC 0.3 H BUN Creatinine Est GFR ( Amer) Est GFR (Non-Af Amer) BUN/Creatinine Ratio POC Glucose Uric Acid 7.8 H Magnesium > 8.0 H AST 23 ALT 24 Lactate Dehydrogenase Urine Creatinine Protein/Creatinin Ratio Urine Total Protein Urine Opiates Screen Ur Barbiturates Screen Ur Phencyclidine Scrn Ur Amphetamines Screen U Benzodiazepines Scrn Urine Cocaine Screen U Marijuana (THC) Screen Ur Drug Screen Interp 07/14/18 07/14/18 07/14/18 04:13 07:53 15:49 WBC 17.5 H D RBC 4.09 Hgb 12.0 D Hct 34.1 L MCV 83.4 MCH 29.3 MCHC 35.2 RDW 13.6 Plt Count 230 MPV 10.5 Immature Gran % 0.8 Seg Neutrophils % 81.0 Lymphocytes % 9.6 Monocytes % 8.5 Eosinophils % 0.0 Basophils % 0.1 Neutrophils # 14.2 H Lymphocytes # 1.7 Monocytes # 1.5 H Eosinophils # 0.0 Basophils # 0.0 Nucleated RBCs/100 WBC 0.1 H BUN 12 Creatinine 1.09 Est GFR ( Amer) > 60 Est GFR (Non-Af Amer) > 60 BUN/Creatinine Ratio 11 POC Glucose 113 H Uric Acid 10.1 H Magnesium > 8.0 H AST 58 H ALT 47 Lactate Dehydrogenase 389 H Urine Creatinine Protein/Creatinin Ratio Urine Total Protein Urine Opiates Screen Ur Barbiturates Screen Ur Phencyclidine Scrn Ur Amphetamines Screen U Benzodiazepines Scrn Urine Cocaine Screen U Marijuana (THC) Screen Ur Drug Screen Interp 07/14/18 07/15/18 07/15/18 16:50 06:54 10:56 WBC 15.6 H RBC 3.86 Hgb 11.4 L Hct 33.1 L MCV 85.8 MCH 29.5 MCHC 34.4 RDW 13.9 Plt Count 239 MPV 10.3 Immature Gran % 0.6 Seg Neutrophils % 73.8 Lymphocytes % 15.6 Monocytes % 9.6 Eosinophils % 0.3 Basophils % 0.1 Neutrophils # 11.5 H Lymphocytes # 2.4 Monocytes # 1.5 H Eosinophils # 0.1 Basophils # 0.0 Nucleated RBCs/100 WBC BUN 14 Creatinine 0.99 Est GFR ( Amer) > 60 Est GFR (Non-Af Amer) > 60 BUN/Creatinine Ratio 14 POC Glucose Uric Acid 9.1 H Magnesium AST 53 H ALT 40 Lactate Dehydrogenase 279 H Urine Creatinine 21 Protein/Creatinin Ratio 0.19 Urine Total Protein 4 Urine Opiates Screen Ur Barbiturates Screen Ur Phencyclidine Scrn Ur Amphetamines Screen U Benzodiazepines Scrn Urine Cocaine Screen U Marijuana (THC) Screen Ur Drug Screen [facility] 07/15/18 07/16/18 07/16/18 10:56 09:55 09:55 WBC 13.5 H RBC 4.31 Hgb 12.5 Hct 37.5 MCV 87.0 MCH 29.0 MCHC 33.3 RDW 13.6 Plt Count 327 MPV 10.0 Immature Gran % 0.9 Seg Neutrophils % 63.9 Lymphocytes % 22.9 Monocytes % 9.3 Eosinophils % 2.7 Basophils % 0.3 Neutrophils # 8.6 Lymphocytes # 3.1 Monocytes # 1.3 Eosinophils # 0.4 Basophils # 0.0 Nucleated RBCs/100 WBC 0.2 H BUN 13 10 Creatinine 0.91 0.81 Est GFR ( Amer) > 60 > 60 Est GFR (Non-Af Amer) > 60 > 60 BUN/Creatinine Ratio 14 12 POC Glucose Uric Acid 8.5 H 7.2 Magnesium AST 51 H 46 H ALT 40 46 Lactate Dehydrogenase 263 238 Urine Creatinine Protein/Creatinin Ratio Urine Total Protein Urine Opiates Screen Ur Barbiturates Screen Ur Phencyclidine Scrn Ur Amphetamines Screen U Benzodiazepines Scrn Urine Cocaine Screen U Marijuana (THC) Screen Ur Drug Screen [facility] Labs on day of discharge: Labs from last 24 hours 07/16/18 07/16/18 09:55 09:55 WBC 13.5 H RBC 4.31 Hgb 12.5 Hct 37.5 MCV 87.0 MCH 29.0 MCHC 33.3 RDW 13.6 Plt Count 327 MPV 10.0 Immature Gran % 0.9 Seg Neutrophils % 63.9 Lymphocytes % 22.9 Monocytes % 9.3 Eosinophils % 2.7 Basophils % 0.3 Neutrophils # 8.6 Lymphocytes # 3.1 Monocytes # 1.3 Eosinophils # 0.4 Basophils # 0.0 Nucleated RBCs/100 WBC 0.2 H BUN 10 Creatinine 0.81 Est GFR ( Amer) > 60 Est GFR (Non-Af Amer) > 60 BUN/Creatinine Ratio 12 Uric Acid 7.2 AST 46 H ALT 46 Lactate Dehydrogenase 238 Date of admission: 07/11/18 23:55 Primary care physician: PCP NONE Consults: 07/14/18 01:18 Consult to [facility] [CONS] Routine Comment: Vaginal delivery, consult needed Discharging clinician: Lia Carlson Anticipated date of discharge: 07/16/18 - Patient Status Disposition: Home, Self-Care Condition: Good Functional capacity at discharge: independent ambulation Overall status at discharge: patient is progressing back to baseline - Discharge Instructions Follow Up With: NONE,PCP [Primary Care Provider] - - Diet and Activity Activity: resume usual activities as tolerated Diet: regular diet Hospital Course Reason for admission: induction of labor, pre-eclampsia Delivery: Episiotomy: none Laceration: 2nd degree Other procedures: none complications: other (elevated BP) Discharge diagnosis: delivery, pre-eclampsia [place] baby: female Hospital course: Patient meeting day three milestones. Pain well-controlled with prescribed medications, tolerating regular diet. Voiding without difficulty. No bowel movement yet. Anticipate discharge today. We will continue by mouth labetalol twice a day 200 mg, to follow-up in the office this coming week for blood pressure check. Delivery Date: 07/14/18 Provider: Yue Monreal ([employer] Professor: Dr. Becca Abreu) Intrapartum events: prolonged 2nd stage>2.5hr Delivery induction: oxytocin, misoprostol Delivery augmentation: rupture of membranes, pitocin Delivery monitor: external FHT, internal uterine Anesthesia: epidural Quantitated Blood Loss: 350 - Infant (s) A Infant Delivery Date: 07/14/18 Infant Delivery Time: 23:25 Presentation: vertex Position: VINNIE Route of delivery: vacuum extraction Gender: Female Viability: Viable Pounds: 5 Ounces: 5 Weight Gram: 2.42 kg at 1 minute: 6 at 5 mins: 8 Shoulder Dystocia: not encountered Specimens collected: cord blood Placenta: spontaneous Cord: nuchal cord, 3 umbilical vessels, nuchal reduced - Repair Episiotomy: none Laceration Description: Periurethral, Perineal - 2nd Degree - Complications Delivery complications: uterine atony Delivery comments: Pt progressed to complete w/ epidural anesthesia. With the assistance of a vacuum, she pushed to deliver a live female with APGARS of 6/8, weighing 5#5oz @ 2325. The head delivered in the VINNIE position. A nuchal cord was observed around the neck & reduced at the perineum. The left shoulder delivered with ease, followed by the rest of the body. The infant was safely transferred to the maternal abdomen for further care by the RNs. The cervix, vagina, & perineum were inspected for lacerations. A second degree perineal laceration was repaired w/ 3-0 monocryl. A figure of 8 stitch was placed at the apex to assist w/ hemostasis. Good hemostasis obtained. - Disposition Mom disposition: stable in LDR [place] disposition: stable in LDR Time Attestation: Total time spent providing and/or coordinating discharge services: Time Spent: Less than 30 minutes Exam - Constitutional Vitals: Temp Pulse Resp BP Pulse Ox 98.1 F 71 14 111/75 98 07/16/18 11:19 07/16/18 11:19 07/16/18 11:19 07/16/18 11:19 07/16/18 11:19 General appearance IM: A&O X 3, pleasant, no acute distress, answers questions appropriately - Respiratory Respiratory exam: Present: CTAB - Cardiovascular Cardiovascular exam IM: Present: RRR, +S1, +S2 - GI/Abdominal GI/Abdominal exam IM: normal bowel sounds, soft - Rectal Rectal exam: deferred - External exam: normal external exam Uterine Tone: Firm Uterus Position: At Umbilicus, Midline - Extremities Exam Extremities exam IM: Present: full ROM, normal capillary refill, normal inspection - Neurological Exam Neurological exam: alert, normal gait, oriented X3
== END 2018-07-16 15:05 | disposition home or self-care (01) | DRG 560 ==
LOC: 1NENULAB → 1NENUOBS 14:18 → 1NENULAB 23:49 → 1NENUOBS 07-14 02:44
PROVIDERS: ADMIT Registered Nurse; ATTEND Registered Nurse